=== PATIENT | male | born 1955 | race Two or more races ===

== ENCOUNTER 2021-12-28 12:34 | Inpatient (IN) | payer MEDICARE, OTHER ==
[2021-12-28] VITALS (8 sets, daily range): BP systolic 119–144; BP diastolic 67–87
[~2021-12-28] VITALS: Ht 162.6 cm; Wt 75.1 kg
--- NOTE | 2021-12-28 12:45 | ED.ADGEN ---
Past Medical History Past Medical History: No Pertinent History Past Surgical History: No Surgical History Smoking Status: Current Every Day Smoker Alcohol Use: None Drug Use: Marijuana General Adult EDM: Chief Complaint: GI PROBLEM HPI: HPI: Patient is a 66 year old male brought in via EMS from endoscopy suite. Patient was getting a routine screening colonoscopy with the patient was concerned there could be a bowel perforation. Patient is complaining of no abdominal pain at this time. Review of Systems: Review of Systems: All other systems within normal limits except for as noted in the HPI Current Medications: Current Medications Medications (Trade) Dose Ordered Sig/Tete Start Time Stop Time Status Last Admin Dose Admin Info (CONTRAST GIVEN -- Rx MONITORING) 1 each PRN DAILY PRN 12/28/21 13:30 12/30/21 13:29 Iohexol (Omnipaque 300 Mg/ml) 75 ml 1X ONCE 12/28/21 13:15 12/28/21 13:18 DC 12/28/21 13:23 75 ML Allergies: Allergies: Allergies Coded Allergies Type Severity Reaction Last Updated Verified naproxen Allergy Intermediate 12/28/21 No Physical Exam: PE: Constitutional: Well developed, well nourished, no acute distress, non-toxic appearance. [] HENT: Normocephalic, atraumatic, bilateral external ears normal, nose normal. [] Eyes: PERRLA, conjunctiva normal, no discharge. [] Neck: No rigidity, supple, no stridor. [] Cardiovascular: Regular rate and rhythm, brisk cap refill [] Lungs & Thorax: Non labored symmetric respirations, no tachypnea or respiratory distress [] Abdomen: Soft, nondistended, no tenderness or guarding palpation. Skin: Warm, dry, no erythema, no rash. [] Back: Unremarkable Extremities: No deformities, range of motion grossly intact, no lower extremity edema [] Neurologic: Alert and oriented X 3, no focal deficits noted. [] Psychologic: Affect normal, judgement normal, mood normal. [] Current Patient Data: Labs: Laboratory Tests Test 12/28/21 11:25 White Blood Count 6.5 x10^3/uL (4.0-11.0) Red Blood Count 5.07 x10^6/uL (4.30-5.70) Hemoglobin 13.5 g/dL (13.0-17.5) Hematocrit 41.8 % (39.0-53.0) Mean Corpuscular Volume 83 fL (79-100) Mean Corpuscular Hemoglobin 27 pg (25-35) Mean Corpuscular Hemoglobin Concent 32 g/dL (31-37) Red Cell Distribution Width 14.5 % (11.5-14.5) Platelet Count 167 x10^3/uL (140-400) Neutrophils (%) (Auto) 62 % (31-73) Lymphocytes (%) (Auto) 26 % (24-48) Monocytes (%) (Auto) 6 % (0-9) Eosinophils (%) (Auto) 5 % (0-3) H Basophils (%) (Auto) 1 % (0-3) Neutrophils # (Auto) 4.0 x10^3/uL (1.8-7.7) Lymphocytes # (Auto) 1.7 x10^3/uL (1.0-4.8) Monocytes # (Auto) 0.4 x10^3/uL (0.0-1.1) Eosinophils # (Auto) 0.3 x10^3/uL (0.0-0.7) Basophils # (Auto) 0.1 x10^3/uL (0.0-0.2) Sodium Level 137 mmol/L (136-145) Potassium Level 4.5 mmol/L (3.5-5.1) Chloride Level 107 mmol/L (98-107) Carbon Dioxide Level 25 mmol/L (21-32) Anion Gap 5 (6-14) L Blood Urea Nitrogen 14 mg/dL (8-26) Creatinine 1.1 mg/dL (0.7-1.3) Estimated GFR (Cockcroft-Gault) 66.6 BUN/Creatinine Ratio 13 (6-20) Glucose Level 95 mg/dL (70-99) Calcium Level 8.4 mg/dL (8.5-10.1) L Total Bilirubin 0.6 mg/dL (0.2-1.0) Aspartate Amino Transferase (AST) 20 U/L (15-37) Alanine Aminotransferase (ALT) 29 U/L (16-63) Alkaline Phosphatase 72 U/L (46-116) Total Protein 6.7 g/dL (6.4-8.2) Albumin 3.4 g/dL (3.4-5.0) Albumin/Globulin Ratio 1.0 (1.0-1.7) Laboratory Tests 12/28/21 11:25 Laboratory Tests 12/28/21 11:25 Vital Signs: Vital Signs Date Time Temp Pulse Resp B/P (MAP) Pulse Ox O2 Delivery O2 Flow Rate FiO2 12/28/21 12:35 97.8 60 17 174/85 (114) 98 Room Air 97.8 EKG: EKG: [] Heart Score: C/O Chest Pain: No Risk Factors: Risk Factors: DM, Current or recent (<one month) smoker, HTN, HLP, family history of CAD, obesity. Risk Scores: Score 0 - 3: 2.5% MACE over next 6 weeks - Discharge Home Score 4 - 6: 20.3% MACE over next 6 weeks - Admit for Clinical Observation Score 7 - 10: 72.7% MACE over next 6 weeks - Early Invasive Strategies Radiology/Procedures: Radiology/Procedures: [facility] [address] [place] [address] IMAGING REPORT Signed PATIENT: GILL HUANG ACCOUNT: [id number] : 1955 LOCATION: ER AGE: 66 SEX: M EXAM STATUS: REG ER ORD. PHYSICIAN: TARA BARRY MD REASON: possible bowel perforation PROCEDURE: CT ABD PELV W/ IV CONTRST ONLY Exam: CT abdomen/pelvis with intravenous contrast Indication: Possible bowel perforation during colonoscopy Comparison: None Technique: Helical CT imaging performed of the abdomen and pelvis after the intravenous administration of 75 mL Omnipaque 300 contrast. Sagittal and coronal reformats were obtained. One or more of the following individualized dose reduction techniques were utilized for this examination: 1. Automated exposure control 2. Adjustment of the mA and/or kV according to patient size 3. Use of iterative reconstruction technique. Findings: Lower chest: Mild nonspecific interstitial changes in the lower lobes. The heart is normal in size. Liver: Normal. Gallbladder/Biliary Tree: Normal. Pancreas: Normal. Spleen: Normal. Adrenal Glands: Normal. Kidneys/Ureters/Bladder: The kidneys are normal in size and enhance symmetrically. There are large bilateral peripelvic cysts versus bilateral hydronephrosis related to UPJ obstruction. Ureters and bladder are normal. Reproductive Organs: Prostate gland is normal. Stomach, small bowel, and colon: There is a large amount of free air around the sigmoid colon suspicious for perforation. There are few diverticula in the sigmoid colon. The rest the colon is normal. Appendix is normal. There is no sma ll bowel obstruction. The stomach is normal. Vasculature: Abdominal aorta is normal in caliber. Mild atherosclerosis. Lymph Nodes: No lymphadenopathy. Peritoneum and retroperitoneum: Large amount of free air around the sigmoid colon and tracking upward along the left retroperitoneum. No free fluid or fluid collection. Bones: No acute osseous abnormality. Miscellaneous: None IMPRESSION: 1. Sigmoid colon perforation with large amount of free air around the sigmoid colon and tracking up the left retroperitoneum. 2. Bilateral peripelvic cysts versus bilateral hydronephrosis related to UPJ obstructions. FOR INTERNAL CODING PURPOSES Critical result: Findings discussed with TARA BARRY MD at 12/28/2021 2:06 PM. RESULT CODE: (C) 1. Electronically signed by: Tara Bailey MD (12/28/2021 2:07 PM) [id number] DICTATED and SIGNED BY: TARA BAILEY MD DATE: 12/28/21 4043 [] Course & Med Decision Making: Course & Med Decision Making Consult placed to general surgery, Dr. Nolan will take patient to the OR. Antibiotics started emergency department Dragon Disclaimer: Dragon Disclaimer: This electronic medical record was generated, in whole or in part, using a voice recognition dictation system. Departure Departure Impression: Primary Impression: Perforation of sigmoid colon Disposition: ADMITTED INPATIENT Condition: GUARDED Referrals: BRANDON ROSADO MD (PCP) TARA BARRY MD Dec 28, 2021 12:44
[2021-12-28 13:02] LABS: BASO # 0.1 x10^3/uL (0.0-0.2); BASO % 1 % (0-3); EOS # 0.3 x10^3/uL (0.0-0.7); EOS % 5 % (0-3); HEMATOCRIT 41.8 % (39.0-53.0); HEMOGLOBIN 13.5 g/dL (13.0-17.5); LYMPH # 1.7 x10^3/uL (1.0-4.8); LYMPH % 26 % (24-48); MEAN CORPUSCULAR HEMOGLOBIN 27 pg (25-35); MEAN CORPUSCULAR HGB CONC 32 g/dL (31-37); MEAN CORPUSCULAR VOLUME 83 fL (79-100); MONO # 0.4 x10^3/uL (0.0-1.1); MONO % 6 % (0-9); NEUT % 62 % (31-73); PLATELET COUNT 167 x10^3/uL (140-400); RED BLOOD COUNT 5.07 x10^6/uL (4.30-5.70); RED CELL DISTRIBUTION WIDTH 14.5 % (11.5-14.5); WHITE BLOOD COUNT 6.5 x10^3/uL (4.0-11.0)
[2021-12-28 13:11] LABS: CALCIUM 8.4 mg/dL (8.5-10.1); CREATININE 1.1 mg/dL (0.7-1.3); GFR 66.6; POTASSIUM 4.5 mmol/L (3.5-5.1)
[2021-12-28] MEDS ORDERED: IOHEXOL 300 MG/ML 100ML VIAL. IV ONE (13:15)
[2021-12-28 13:17] LABS: ALBUMIN 3.4 g/dL (3.4-5.0); TOTAL BILIRUBIN 0.6 mg/dL (0.2-1.0); TOTAL PROTEIN 6.7 g/dL (6.4-8.2)
[2021-12-28] MEDS ORDERED: CONTRAST GIVEN. MC PRN (13:30)
--- NOTE | 2021-12-28 14:09 | RAD ---
Exam: CT abdomen/pelvis with intravenous contrast Indication: Possible bowel perforation during colonoscopy Comparison: None Technique: Helical CT imaging performed of the abdomen and pelvis after the intravenous administratio n of 75 mL Omnipaque 300 contrast. Sagittal and coronal reformats were obtained. One or more of the following individualized dose reduction techniques were utilized for this examinat ion: 1. Automated exposure control 2. Adjustment of the mA and/or kV according to patient size 3. Use of iterative reconstruction technique. Findings: Lower chest: Mild nonspecific interstitial changes in the lower lobes. The heart is normal in size. Liver: Normal. Gallbladder/Biliary Tree: Normal. Pancreas: Normal. Spleen: Normal. Adrenal Glands: Normal. Kidneys/Ureters/Bladder: The kidneys are normal in size and enhance symmetrically. There are large bi lateral peripelvic cysts versus bilateral hydronephrosis related to UPJ obstruction. Ureters and blad hang are normal. Reproductive Organs: Prostate gland is normal. Stomach, small bowel, and colon: There is a large amount of free air around the sigmoid colon suspici ous for perforation. There are few diverticula in the sigmoid colon. The rest the colon is normal. Ap pendix is normal. There is no small bowel obstruction. The stomach is normal. Vasculature: Abdominal aorta is normal in caliber. Mild atherosclerosis. Lymph Nodes: No lymphadenopathy. Peritoneum and retroperitoneum: Large amount of free air around the sigmoid colon and tracking upward along the left retroperitoneum. No free fluid or fluid collection. Bones: No acute osseous abnormality. Miscellaneous: None IMPRESSION: 1. Sigmoid colon perforation with large amount of free air around the sigmoid colon and tracking up the left retroperitoneum. 2. Bilateral peripelvic cysts versus bilateral hydronephrosis related to UPJ obstructions. FOR INTERNAL CODING PURPOSES Critical result: Findings discussed with TARA BARRY MD at 12/28/2021 2:06 PM. RESULT CODE: (C) 1. Electronically signed by: Tara Bailey MD (12/28/2021 2:07 PM) [id number]
[2021-12-28] MEDS ORDERED: cefTRIAXone IV Push 1 GM VIAL. IVP ONE (14:30)
[2021-12-28] MEDS ORDERED: PROPOFOL 10 MG/ML (20ML) VIAL. IV ONE (14:39)
[2021-12-28] MEDS ORDERED: ONDANSETRON PF 4 MG/2 ML VIAL. ONE (14:39)
[2021-12-28] MEDS ORDERED: ROCURONIUM 50 MG/5 ML VIAL. ONE (14:40)
[2021-12-28] MEDS ORDERED: DEXAMETHASONE SOD PHOS 20 MG/5 ML VIAL. ONE (14:41)
[2021-12-28] MEDS ORDERED: BUPIVACAINE-EPI 0.25%-1:200000 MPF 30 ML VIAL. ONE (14:41)
[2021-12-28] MEDS ORDERED: fentaNYL PF VIAL 250 MCG/5 ML VIAL ONE (14:42)
[2021-12-28] MEDS ORDERED: LIDOCAINE 2% PF 5 ML VIAL. ONE (14:42)
[2021-12-28] MEDS ORDERED: NEOSTIGMINE METHYLSULFATE 5 MG/5 ML SYRINGE. ONE (14:43)
[2021-12-28] MEDS ORDERED: GLYCOPYRROLATE 1 MG/5 ML VIAL. ONE (14:43)
[2021-12-28] MEDS ORDERED: ONDANSETRON PF 4 MG/2 ML VIAL. IVP PRN (15:00)
[2021-12-28] MEDS ORDERED: ACETAMINOPHEN 325 MG TABLET. PO PRN (15:00)
[2021-12-28] MEDS ORDERED: MORPHINE SULFATE 4 MG/ML INJ. IVP PRN (15:00)
[2021-12-28 15:09] LABS: INFLUENZA A PATIENT NEGATIVE (NEGATIVE); INFLUENZA B PATIENT NEGATIVE (NEGATIVE)
[2021-12-28] MEDS ORDERED: MIDAZOLAM HCL/PF 2 MG/2 ML VIAL. ONE (15:34)
[2021-12-28] MEDS ORDERED: SUCCINYLCHOLINE 200 MG/10 ML VIAL. ONE (15:42)
[2021-12-28] MEDS ORDERED: HYDROmorphone 2 MG/ML INJ. IVP PRN ×2 (15:45→17:30)
[2021-12-28] MEDS ORDERED: fentaNYL PF VIAL 100 MCG/2 ML VIAL IVP PRN ×2 (15:45)
[2021-12-28] MEDS ORDERED: IV RINGERS,LACTATED 1000ML 1,000 ML IV SCH (15:45)
[2021-12-28] MEDS ORDERED: PROCHLORPERAZINE 10 MG/2 ML VIAL. IVP PRN (15:45)
[2021-12-28] MEDS ORDERED: PHENYLEPHRINE in 0.9% NACL PF 1 MG/10 ML SYRINGE. IV ONE (15:59)
[2021-12-28] MEDS ORDERED: ePHEDrine PF IN SALINE 50 MG/10 ML SYRINGE. IV ONE (16:00)
[2021-12-28] MEDS ORDERED: KETAMINE HCL IN NACL, ISO-OSM 50 MG/5 ML SYRINGE ONE (16:16)
--- NOTE | 2021-12-28 17:27 | PDOC4 ---
Operative Note Operative Note Date: December 282021 at 5:23 PM Preoperative diagnosis: Perforated sigmoid colon post colonoscopy Postoperative diagnosis: Same Procedure: Diagnostic laparoscopy with laparoscopic repair of perforated colon Surgeon: Luigi Specimen: None Dictation: Patient is a 66-year-old male who is undergoing a diagnostic colonoscopy earlier today when a known perforation occurred in the mid sigmoid colon he was transferred to the emergency department at [place] CT scan was performed which did show free air within the pelvis surrounding the sigmoid colon consistent with a perforation. Procedure of diagnostic laparoscopy with repair of perforation both laparoscopic and open were explained to the patient detail risk benefits were also discussed including bleeding infection injury to intra-abdominal contents possible necessitating further open operations alternatives to this procedure also discussed with the patient who seemed to understand and gave a verbal and written consent had the procedure performed. Patient was taken to the operating room placed in the supine position general anesthesia was initiated once patient was sleeping intubated his abdomen was prepped and draped usual sterile fashion using ChloraPrep. An area in the left upper quadrant was injected with quarter percent Marcaine with epinephrine incision was made 11 blade scalpel and a 5 mm nonbladed Visiport was placed under direct visualization into the abdomen and a pneumoperitoneum was achieved 5 mm scope was then placed within the abdomen was inspected there was some air within the mesenteric fat in the mid sigmoid a 5 mm port was placed in the right midabdomen a 5 mm port in the right lower abdomen using a grasper this area was investigated and a small hole within the mid sigmoid colon was visualized with exposed mucosa. The 5 mm port in the right midabdomen was replaced with a 12 mm port and a 5 mm port was placed in the midline all under direct visualization. Using an Endo Stitch the perforation was closed with single interrupted 2-0 silk. Once the hole was completely closed a 19 Welsh MICHAEL drain was placed throu gh the right lower quadrant 5 mm port site leg close to the sigmoid colon perforation. There was no soilage or spillage of any cells since the patient has been prepped for his colonoscopy it was quite clean. The pneumoperitoneum was reduced all ports removed the fascial defect at the 12 mm port site was closed with [id number] 0 Vicryl suture and the skin was reapproximated all port sites for subcuticular Monocryl Mastisol Steri-Strips and island dressings were applied. Patient was awakened extubated operating room taken recovery in stable condition all sponge instrument needle counts listed as correct. Estimated blood loss 5 mL THOR SHINE MD Dec 28, 2021 17:27
--- NOTE | 2021-12-28 17:34 | PDOC2 ---
CONSULT Date of Consult Date of Consult DATE: 12/28/21 TIME: 17:31 Reason for Consult Reason for Consult: Perforation status post colonoscopy Referring Physician Referring Physician: Isabelle Identification/Chief Complaint Chief Complaint Abdominal pain Source Source: Chart review, Patient History of Present Illness Reason for Visit: 66-year-old male who underwent a screening colonoscopy was determined to have a perforation at the time of colonoscopy and was transferred to [place] emergency department for evaluation and treatment. A CT scan was performed of his abdomen which showed a large amount of free air mostly centered around the mid sigmoid colon. The patient was otherwise fairly comfortable minimal pain no nausea or vomiting Past Medical History Cardiovascular: No pertinent hx Pulmonary: No pertinent hx GI: No pertinent hx Heme/Onc: No pertinent hx Hepatobiliary: No pertinent hx Psych: No pertinent hx Rheumatologic: No pertinent hx Infectious disease: No pertinent hx ENT: No pertinent hx Renal/: No pertinent hx Endocrine: No pertinent hx Dermatology: No pertinent hx Past Surgical History Past Surgical History: No pertinent history Family History Family History: No Significant Social History No ALCOHOL: none Drugs: None Lives: with Family Current Problem List Problem List Problems Medical Problems: (1) Perforation of sigmoid colon Status: Acute Current Medications Current Medications Current Medications Iohexol (Omnipaque 300 Mg/ml) 75 ml 1X ONCE IV Last administered on 12/28/21at 13:23; Start 12/28/21 at 13:15; Stop 12/28/21 at 13:18; Status DC Info (CONTRAST GIVEN -- Rx MONITORING) 1 each PRN DAILY PRN MC SEE COMMENTS; Start 12/28/21 at 13:30; Stop 12/30/21 at 13:29 Ceftriaxone Sodium (Rocephin) 1 gm 1X ONCE IVP Last administered on 12/28/21at 14:40; Start 12/28/21 at 14:30; Stop 12/28/21 at 14:31; Status DC Metronidazole 100 ml @ 100 mls/hr 1X ONCE IV Last administered on 12/28/21at 14:30; Start 12/28/21 at 14:30; Stop 12/28/21 at 15:29; Status DC Propofol (Diprivan) 200 mg STK-MED ONCE IV ; Start 12/28/21 at 14:39; Stop 12/28/21 at 14:39; Status DC Ondansetron HCl (Zofran) 4 mg STK-MED ONCE .ROUTE ; Start 12/28/21 at 14:39; Stop 12/28/21 at 14:39; Status DC Rocuronium [place] (Zemuron) 50 mg STK-MED ONCE .ROUTE ; Start 12/28/21 at 14:40; Stop 12/28/21 at 14:40; Status DC Dexamethasone Sodium Phosphate (Decadron) 20 mg STK-MED ONCE .ROUTE ; Start 12/28/21 at 14:41; Stop 12/28/21 at 14:41; Status DC Bupivacaine HCl/ Epinephrine Bitart (Sensorcaine-Epi 0.25%-1:479525 Mpf) 30 ml STK-MED ONCE .ROUTE Last administered on 12/28/21at 16:18; Start 12/28/21 at 14:41; Stop 12/28/21 at 14:42; Status DC Lidocaine HCl (Lidocaine Pf 2% Vial) 5 ml STK-MED ONCE .ROUTE ; Start 12/28/21 at 14:42; Stop 12/28/21 at 14:42; Status DC Fentanyl Citrate (Fentanyl 5ml Vial) 250 mcg STK-MED ONCE .ROUTE ; Start 12/28/21 at 14:42; Stop 12/28/21 at 14:43; Status DC Neostigmine [place] (Neostigmine Methylsulfate) 5 mg STK-MED ONCE .ROUTE ; Start 12/28/21 at 14:43; Stop 12/28/21 at 14:44; Status DC Glycopyrrolate (Robinul) 1 mg STK-MED ONCE .ROUTE ; Start 12/28/21 at 14:43; Stop 12/28/21 at 14:44; Status DC Ondansetron HCl (Zofran) 4 mg PRN Q8HRS PRN IVP NAUSEA/VOMITING; Start 12/28/21 at 15:00; Stop 12/29/21 at 14:59 Morphine Sulfate (Morphine Sulfate) 4 mg PRN Q2HR PRN IVP PAIN; Start 12/28/21 at 15:00; Stop 12/29/21 at 14:59 Sodium Chloride 1,000 ml @ 100 mls/hr Q10H IV ; Start 12/28/21 at 15:00; Stop 12/29/21 at 14:59 Acetaminophen (Tylenol) 650 mg PRN Q4HRS PRN PO FEVER > 100.3'F; Start 12/28/21 at 15:00; Stop 12/29/21 at 14:59 Midazolam HCl (Versed) 2 mg STK-MED ONCE .ROUTE ; Start 12/28/21 at 15:34; Stop 12/28/21 at 15:34; Status DC Fentanyl Citrate (Fentanyl 2ml Vial) 25 mcg PRN Q5MIN PRN IVP MILD PAIN 1-3; Start 12/28/21 at 15:45; Stop 12/29/21 at 15:44 Fentanyl Citrate (Fentanyl 2ml Vial) 50 mcg PRN Q5MIN PRN IVP MODERATE PAIN 4- 6; Start 12/28/21 at 15:45; Stop 12/29/21 at 15:44 Morphine Sulfate (Morphine Sulfate) 1 mg PRN Q10MIN PRN IVP SEVERE PAIN 7-10; Start 12/28/21 at 15:45; Stop 12/29/21 at 15:44 Ringer's Solution 1,000 ml @ 30 mls/hr Q24H IV ; Start 12/28/21 at 15:45; Stop 12/29/21 at 03:44 Hydromorphone HCl (Dilaudid) 0.5 mg PRN Q10MIN PRN IVP SEVERE PAIN 7-10, 2nd CHOICE; Start 12/28/21 at 15:45; Stop 12/29/21 at 15:44 Prochlorperazine Edisylate (Compazine) 5 mg PACU PRN PRN IVP NAUSEA, MRX1; Start 12/28/21 at 15:45; Stop 12/29/21 at 15:44 Succinylcholine Chloride (Anectine) 200 mg STK-MED ONCE .ROUTE ; Start 12/28/21 at 15:42; Stop 12/28/21 at 15:43; Status DC Phenylephrine HCl (PHENYLEPHRINE in 0.9% NACL PF) 1 mg STK-MED ONCE IV ; Start 12/28/21 at 15:59; Stop 12/28/21 at 15:59; Status DC Ephedrine Sulfate (ePHEDrine PF IN SALINE SYRINGE) 50 mg STK-MED ONCE IV ; Start 12/28/21 at 16:00; Stop 12/28/21 at 16:00; Status DC Ketamine HCl (Ketamine) 50 mg STK-MED ONCE .ROUTE ; Start 12/28/21 at 16:16; Stop 12/28/21 at 16:16; Status DC Allergies Allergies: Coded Allergies: naproxen (Unverified Allergy, Intermediate, 12/28/21) ROS General: No: Chills, Night Sweats, Fatigue, Malaise, Appetite, Other PSYCHOLOGICAL ROS: No: Anxiety, Behavioral Disorder, Concentration difficultie, Decreased libido, Depression, Disorientation, Hallucinations, Hostility, Irritablity, Memory difficulties, Mood Swings, Obsessive thoughts, Physical abuse, Sexual abuse, Sleep disturbances, Suicidal ideation, Other Eyes: No Blurry vision, No Decreased vision, No Double vision, No Dry eyes, No Excessive tearing, No Eye Pain, No Itchy Eyes, No Loss of vision, No Photophobia, No Scotomata, No Uses contacts, No Uses glasses, No Other HEENT: No: Heacaches, Visual Changes, Hearing change, Nasal congestion, Nasal discharge, Oral lesions, Sinus pain, Sore Throat, Epistaxis, Sneezing, Snoring, Tinnitus, Vertigo, Vocal changes, Other ALLERGY AND IMMUNOLOGY: No: Hives, Insect Bite Sensitivity, Itchy/Watery Eyes, Nasal Congestion, Post Nasal Drip, Seasonal Allergies, Other Hematological and Lymphatic: No: Bleeding Problems, Blood Clots, Blood Transfusions, Brusing, Night Sweats, Pallor, Swollen Lymph Nodes, Other ENDOCRINE: No: Breast Changes, Galactorrhea, Hair Pattern Changes, Hot Flashes, Malaise/lethargy, Mood Swings, Palpitations, Polydipsia/polyuria, Skin Changes, Temperature Intolerance, Unexpected Weight Changes, Other Breast: No New/Changing Breast Lumps, No Nipple changes, No Nipple discharge, No Other Respiratory: No: Cough, Hemoptysis, Orthopnea, Pleuritic Pain, Shortness of breath, SOB with excertion, Sputum Changes, Stridor, Tachypnea, Wheezing, Other Cardiovascular: No Chest Pain, No Palpitations, No Orthopnea, No Paroxysmal Noc. Dyspnea, No Edema, No Lt Headedness, No Other Gastrointestinal: Yes Abdominal Pain Genitourinary: No Dysuria, No Frequency, No Incontinence, No Hematuria, No Retention, No Discharge, No Urgency, No Pain, No Flank Pain, No Other, No , No , No , No , No , No , No Musculoskeletal: No Gait Disturbance, No Joint Pain, No Joint Stiffness, No Joint Swelling, No Muscle Pain, No Muscular Weakness, No Pain In:, No Swelling In:, No Other Neurological: No Behavorial Changes, No Bowel/Bladder ControlChng, No Confusion, No Dizziness, No Gait Disturbance, No Headaches, No Impaired Coord/balance, No Memory Loss, No Numbness/Tingling, No Seizures, No Speech Problems, No Tremors, No Visual Changes, No Weakness, No Other Skin: No Dry Skin, No Eczema, No Hair Changes, No Lumps, No Mole Changes, No Mottling, No Nail Changes, No Pruritus, No Rash, No Skin Lesion Changes, No Other, No Acne Physical Exam General: Alert, Oriented X3, Cooperative, mild distress HEENT: Atraumatic, PERRLA, EOMI Lungs: Clear to auscultation, Normal air movement Heart: Regular rate, No murmurs Abdomen: Normal bowel sounds, Soft, Other (Mildly tender to palpation left lower quadrant) Extremities: No edema Skin: No significant lesion Neuro: Normal speech Psych/Mental Status: Mental status NL Vitals VITALS Vital Signs Date Time Temp Pulse Resp B/P (MAP) Pulse Ox O2 Delivery O2 Flow Rate FiO2 12/28/21 15:33 97.7 73 145/81 97 Room Air 97.7 12/28/21 14:41 15 Labs Labs Laboratory Tests Test 12/28/21 11:25 12/28/21 14:35 White Blood Count 6.5 x10^3/uL (4.0-11.0) Red Blood Count 5.07 x10^6/uL (4.30-5.70) Hemoglobin 13.5 g/dL (13.0-17.5) Hematocrit 41.8 % (39.0-53.0) Mean Corpuscular Volume 83 fL (79-100) Mean Corpuscular Hemoglobin 27 pg (25-35) Mean Corpuscular Hemoglobin Concent 32 g/dL (31-37) Red Cell Distribution Width 14.5 % (11.5-14.5) Platelet Count 167 x10^3/uL (140-400) Neutrophils (%) (Auto) 62 % (31-73) Lymphocytes (%) (Auto) 26 % (24-48) Monocytes (%) (Auto) 6 % (0-9) Eosinophils (%) (Auto) 5 % (0-3) Basophils (%) (Auto) 1 % (0-3) Neutrophils # (Auto) 4.0 x10^3/uL (1.8-7.7) Lymphocytes # (Auto) 1.7 x10^3/uL (1.0-4.8) Monocytes # (Auto) 0.4 x10^3/uL (0.0-1.1) Eosinophils # (Auto) 0.3 x10^3/uL (0.0-0.7) Basophils # (Auto) 0.1 x10^3/uL (0.0-0.2) Sodium Level 137 mmol/L (136-145) Potassium Level 4.5 mmol/L (3.5-5.1) Chloride Level 107 mmol/L (98-107) Carbon Dioxide Level 25 mmol/L (21-32) Anion Gap 5 (6-14) Blood Urea Nitrogen 14 mg/dL (8-26) Creatinine 1.1 mg/dL (0.7-1.3) Estimated GFR (Cockcroft-Gault) 66.6 BUN/Creatinine Ratio 13 (6-20) Glucose Level 95 mg/dL (70-99) Calcium Level 8.4 mg/dL (8.5-10.1) Total Bilirubin 0.6 mg/dL (0.2-1.0) Aspartate Amino Transf (AST/SGOT) 20 U/L (15-37) Alanine Aminotransferase (ALT/SGPT) 29 U/L (16-63) Alkaline Phosphatase 72 U/L (46-116) Total Protein 6.7 g/dL (6.4-8.2) Albumin 3.4 g/dL (3.4-5.0) Albumin/Globulin Ratio 1.0 (1.0-1.7) Influenza Type A Antigen Negative (NEGATIVE) Influenza Type B Antigen Negative (NEGATIVE) SARS-CoV-2 Antigen (Rapid) Negative (NEGATIVE) Laboratory Tests Test 12/28/21 11:25 12/28/21 14:35 White Blood Count 6.5 x10^3/uL (4.0-11.0) Red Blood Count 5.07 x10^6/uL (4.30-5.70) Hemoglobin 13.5 g/dL (13.0-17.5) Hematocrit 41.8 % (39.0-53.0) Mean Corpuscular Volume 83 fL (79-100) Mean Corpuscular Hemoglobin 27 pg (25-35) Mean Corpuscular Hemoglobin Concent 32 g/dL (31-37) Red Cell Distribution Width 14.5 % (11.5-14.5) Platelet Count 167 x10^3/uL (140-400) Neutrophils (%) (Auto) 62 % (31-73) Lymphocytes (%) (Auto) 26 % (24-48) Monocytes (%) (Auto) 6 % (0-9) Eosinophils (%) (Auto) 5 % (0-3) Basophils (%) (Auto) 1 % (0-3) Neutrophils # (Auto) 4.0 x10^3/uL (1.8-7.7) Lymphocytes # (Auto) 1.7 x10^3/uL (1.0-4.8) Monocytes # (Auto) 0.4 x10^3/uL (0.0-1.1) Eosinophils # (Auto) 0.3 x10^3/uL (0.0-0.7) Basophils # (Auto) 0.1 x10^3/uL (0.0-0.2) Sodium Level 137 mmol/L (136-145) Potassium Level 4.5 mmol/L (3.5-5.1) Chloride Level 107 mmol/L (98-107) Carbon Dioxide Level 25 mmol/L (21-32) Anion Gap 5 (6-14) Blood Urea Nitrogen 14 mg/dL (8-26) Creatinine 1.1 mg/dL (0.7-1.3) Estimated GFR (Cockcroft-Gault) 66.6 BUN/Creatinine Ratio 13 (6-20) Glucose Level 95 mg/dL (70-99) Calcium Level 8.4 mg/dL (8.5-10.1) Total Bilirubin 0.6 mg/dL (0.2-1.0) Aspartate Amino Transf (AST/SGOT) 20 U/L (15-37) Alanine Aminotransferase (ALT/SGPT) 29 U/L (16-63) Alkaline Phosphatase 72 U/L (46-116) Total Protein 6.7 g/dL (6.4-8.2) Albumin 3.4 g/dL (3.4-5.0) Albumin/Globulin Ratio 1.0 (1.0-1.7) Influenza Type A Antigen Negative (NEGATIVE) Influenza Type B Antigen Negative (NEGATIVE) SARS-CoV-2 Antigen (Rapid) Negative (NEGATIVE) Assessment/Plan Assessment/Plan Perforation of the colon post colonoscopy plan for repair THOR SHINE MD Dec 28, 2021 17:34
[2021-12-28] MEDS: MORPHINE SULFATE 2 MG/ML INJ. IVP PRN ×2 (17:54→18:08)
[2021-12-28] MEDS: KETOROLAC 15 MG/ML VIAL. IVP SCH ×2 (18:00→23:21)
[2021-12-28] MEDS: cefTRIAXone IV Push 1 GM VIAL. IVP SCH (18:00)
[2021-12-28] MEDS: IV NORMAL SALINE 1000ML BAG 1,000 ML IV SCH (18:07)
[2021-12-28] MEDS ORDERED: KETOROLAC 30 MG/ML VIAL. IVP ONE (18:30)
--- NOTE | 2021-12-28 18:58 | HP ---
DATE OF SERVICE: 12/28/2021 ADMIT DATE: 12/28/2021 CHIEF COMPLAINT: Perforated bowel. 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 Basically, he was getting a routine colonoscopy done today at [facility] and apparently, there was a concern for a perforation. He was sent to the ER for evaluation. We have consulted Dr. Meyers. Dr. Meyers has taken the patient to surgery. Shortly, I did speak with Dr. Meyers and the GI team. PAST MEDICAL HISTORY: Marijuana use. ALLERGIES: NAPROXEN. FAMILY HISTORY: Diabetes. SOCIAL HISTORY: Does not drink or smoke. He smokes marijuana. He repairs boots. His daughter is a county demonstrator. She is here with him, seems to be good support for him. MEDICATIONS: Reviewed, please refer to the MRAD. REVIEW OF SYSTEMS: GENERAL: No history of weight change, weakness or fevers. SKIN: No bruising, hair changes or rashes. EYES: No blurred, double or loss of vision. NOSE AND THROAT: No history of nosebleeds, hoarseness or sore throat. HEART: No history of palpitations, chest pain or shortness of breath on exertion. LUNGS: Denies cough, hemoptysis, wheezing or shortness of breath. GASTROINTESTINAL: He does complain of a little bit of abdominal pain. GENITOURINARY: No history of frequency, urgency, hesitancy or nocturia. NEUROLOGIC: Denies history of numbness, tingling, tremor or weakness. PSYCHIATRIC: No history of panic, anxiety or depression. ENDOCRINE: No history of heat or cold intolerance, polyuria or polydipsia. EXTREMITIES: Denies muscle weakness, joint pain, pain on walking or stiffness. PHYSICAL EXAMINATION: VITALS: Within normal limits and are stable. GENERAL: No apparent distress. Alert and oriented. HEENT: Normal cephalic atraumatic, external auditory canals are patent EYES: Extraocular muscles are intact, pupils are equally round and reactive to light and accommodation MUSCULOSKELETAL: Well developed, well nourished, good range of motion ENDOCRINE: No thyromegaly was palpated LYMPHATICS: No cervical chain or axillary nodes were noted HEMATOPOIETIC: No bruising NECK: Supple, no JVD, no thyromegaly was noted. LUNGS: Clear to auscultation in all lung bennett without rhonchi or wheezing. HEART: RRR, S1, S2 present. Peripheral pulses intact, no obvious murmurs were noted. ABDOMEN: He has decreased bowel sounds with some slight tenderness. EXTREMITIES: Without any cyanosis, clubbing, or edema. Pedal pulses intact, Homans sign is negative. NEUROLOGIC: Normal speech, normal tone. A and O x3, moves all extremities, no obvious focal deficits. PSYCHIATRIC: Normal affect, normal mood. Stable. SKIN: No ulcerations or rashes, good skin turgor, no jaundice. VASCULAR: Good capillary refill, neurovascular bundle appears to be intact. LABORATORY DATA: White count 6, hemoglobin 13, platelets 167. Electrolytes are normal. COVID testing negative. DIAGNOSTIC DATA: CT of the abdomen shows a sigmoid colon perforation with a large amount of free air surrounding the sigmoid colon and tracking up the left retroperitoneum, bilateral peripelvic cyst versus bilateral hydronephrosis related to UPJ obstructions. ASSESSMENT AND PLAN: Perforated bowel. The patient has been admitted. We are consulting Dr. Meyers. The patient is going to surgery right now. Postoperatively, he is going to need wound care and perhaps IV antibiotics. We will trend his labs. Regarding the abnormal imaging with the possibility of hydronephrosis, we will consult Urology. Home medications. IV fluids. Deep vein thrombosis prophylaxis. Full code. MARY/RUSTAM/DONELL DR: MARY/yolanda TID: [id number]
[2021-12-29 03:00] VITALS: BP 105/59
[2021-12-29] MEDS: IV NORMAL SALINE 1000ML BAG 1,000 ML IV SCH ×2 (04:37→11:00)
[2021-12-29] MEDS: KETOROLAC 30 MG/ML VIAL. IVP SCH ×4 (06:00→23:41)
[2021-12-29 07:00] VITALS: BP 100/51
[2021-12-29 07:24] LABS: BASO % 0 % (0-3); EOS % 0 % (0-3); HEMATOCRIT 40.9 % (39.0-53.0); HEMOGLOBIN 12.8 g/dL (13.0-17.5); LYMPH # 0.7 x10^3/uL (1.0-4.8); LYMPH % 8 % (24-48); MEAN CORPUSCULAR HEMOGLOBIN 26 pg (25-35); MEAN CORPUSCULAR HGB CONC 31 g/dL (31-37); MEAN CORPUSCULAR VOLUME 83 fL (79-100); MONO # 0.3 x10^3/uL (0.0-1.1); MONO % 4 % (0-9); NEUT # 7.7 x10^3/uL (1.8-7.7); NEUT % 88 % (31-73); PLATELET COUNT 159 x10^3/uL (140-400); RED BLOOD COUNT 4.93 x10^6/uL (4.30-5.70); RED CELL DISTRIBUTION WIDTH 14.4 % (11.5-14.5); WHITE BLOOD COUNT 8.8 x10^3/uL (4.0-11.0)
[2021-12-29 07:53] LABS: ALBUMIN 2.9 g/dL (3.4-5.0); CALCIUM 7.7 mg/dL (8.5-10.1); CREATININE 1.1 mg/dL (0.7-1.3); GFR 66.6; TOTAL BILIRUBIN 0.5 mg/dL (0.2-1.0); TOTAL PROTEIN 5.9 g/dL (6.4-8.2)
--- NOTE | 2021-12-29 09:07 | PDOC ---
SURGICAL PROGRESS NOTE DATE: 12/29/21 TIME: 09:06 Subjective sore, but improved no nausea no flatus yet Vital Signs Vital Signs Date Time Temp Pulse Resp B/P (MAP) Pulse Ox O2 Delivery O2 Flow Rate FiO2 12/29/21 08:00 Mask 10.0 12/29/21 07:00 97.6 59 20 100/51 (67) 95 97.6 I&O Intake and Output 12/29/21 07:00 Intake Total 1100 ml Output Total 345 ml Balance 755 ml Intake IV Total 1100 ml Output Urine Total 325 ml Estimated Blood Loss 20 ml # Voids 1 General: Alert, Oriented X3, Cooperative Abdomen: Soft, Other (ari serosang) Labs Laboratory Tests Test 12/28/21 11:25 12/28/21 14:35 12/29/21 06:25 White Blood Count 6.5 x10^3/uL (4.0-11.0) 8.8 x10^3/uL (4.0-11.0) Red Blood Count 5.07 x10^6/uL (4.30-5.70) 4.93 x10^6/uL (4.30-5.70) Hemoglobin 13.5 g/dL (13.0-17.5) 12.8 g/dL (13.0-17.5) Hematocrit 41.8 % (39.0-53.0) 40.9 % (39.0-53.0) Mean Corpuscular Volume 83 fL (79-100) 83 fL (79-100) Mean Corpuscular Hemoglobin 27 pg (25-35) 26 pg (25-35) Mean Corpuscular Hemoglobin Concent 32 g/dL (31-37) 31 g/dL (31-37) Red Cell Distribution Width 14.5 % (11.5-14.5) 14.4 % (11.5-14.5) Platelet Count 167 x10^3/uL (140-400) 159 x10^3/uL (140-400) Neutrophils (%) (Auto) 62 % (31-73) 88 % (31-73) Lymphocytes (%) (Auto) 26 % (24-48) 8 % (24-48) Monocytes (%) (Auto) 6 % (0-9) 4 % (0-9) Eosinophils (%) (Auto) 5 % (0-3) 0 % (0-3) Basophils (%) (Auto) 1 % (0-3) 0 % (0-3) Neutrophils # (Auto) 4.0 x10^3/uL (1.8-7.7) 7.7 x10^3/uL (1.8-7.7) Lymphocytes # (Auto) 1.7 x10^3/uL (1.0-4.8) 0.7 x10^3/uL (1.0-4.8) Monocytes # (Auto) 0.4 x10^3/uL (0.0-1.1) 0.3 x10^3/uL (0.0-1.1) Eosinophils # (Auto) 0.3 x10^3/uL (0.0-0.7) 0.0 x10^3/uL (0.0-0.7) Basophils # (Auto) 0.1 x10^3/uL (0.0-0.2) 0.0 x10^3/uL (0.0-0.2) Sodium Level 137 mmol/L (136-145) 141 mmol/L (136-145) Potassium Level 4.5 mmol/L (3.5-5.1) 4.0 mmol/L (3.5-5.1) Chloride Level 107 mmol/L (98-107) 108 mmol/L (98-107) Carbon Dioxide Level 25 mmol/L (21-32) 23 mmol/L (21-32) Anion Gap 5 (6-14) 10 (6-14) Blood Urea Nitrogen 14 mg/dL (8-26) 18 mg/dL (8-26) Creatinine 1.1 mg/dL (0.7-1.3) 1.1 mg/dL (0.7-1.3) Estimated GFR (Cockcroft-Gault) 66.6 66.6 BUN/Creatinine Ratio 13 (6-20) 16 (6-20) Glucose Level 95 mg/dL (70-99) 114 mg/dL (70-99) Calcium Level 8.4 mg/dL (8.5-10.1) 7.7 mg/dL (8.5-10.1) Total Bilirubin 0.6 mg/dL (0.2-1.0) 0.5 mg/dL (0.2-1.0) Aspartate Amino Transf (AST/SGOT) 20 U/L (15-37) 17 U/L (15-37) Alanine Aminotransferase (ALT/SGPT) 29 U/L (16-63) 29 U/L (16-63) Alkaline Phosphatase 72 U/L (46-116) 63 U/L (46-116) Total Protein 6.7 g/dL (6.4-8.2) 5.9 g/dL (6.4-8.2) Albumin 3.4 g/dL (3.4-5.0) 2.9 g/dL (3.4-5.0) Albumin/Globulin Ratio 1.0 (1.0-1.7) 1.0 (1.0-1.7) Influenza Type A Antigen Negative (NEGATIVE) Influenza Type B Antigen Negative (NEGATIVE) SARS-CoV-2 Antigen (Rapid) Negative (NEGATIVE) Laboratory Tests Test 12/28/21 11:25 12/28/21 14:35 12/29/21 06:25 White Blood Count 6.5 x10^3/uL (4.0-11.0) 8.8 x10^3/uL (4.0-11.0) Red Blood Count 5.07 x10^6/uL (4.30-5.70) 4.93 x10^6/uL (4.30-5.70) Hemoglobin 13.5 g/dL (13.0-17.5) 12.8 g/dL (13.0-17.5) Hematocrit 41.8 % (39.0-53.0) 40.9 % (39.0-53.0) Mean Corpuscular Volume 83 fL (79-100) 83 fL (79-100) Mean Corpuscular Hemoglobin 27 pg (25-35) 26 pg (25-35) Mean Corpuscular Hemoglobin Concent 32 g/dL (31-37) 31 g/dL (31-37) Red Cell Distribution Width 14.5 % (11.5-14.5) 14.4 % (11.5-14.5) Platelet Count 167 x10^3/uL (140-400) 159 x10^3/uL (140-400) Neutrophils (%) (Auto) 62 % (31-73) 88 % (31-73) Lymphocytes (%) (Auto) 26 % (24-48) 8 % (24-48) Monocytes (%) (Auto) 6 % (0-9) 4 % (0-9) Eosinophils (%) (Auto) 5 % (0-3) 0 % (0-3) Basophils (%) (Auto) 1 % (0-3) 0 % (0-3) Neutrophils # (Auto) 4.0 x10^3/uL (1.8-7.7) 7.7 x10^3/uL (1.8-7.7) Lymphocytes # (Auto) 1.7 x10^3/uL (1.0-4.8) 0.7 x10^3/uL (1.0-4.8) Monocytes # (Auto) 0.4 x10^3/uL (0.0-1.1) 0.3 x10^3/uL (0.0-1.1) Eosinophils # (Auto) 0.3 x10^3/uL (0.0-0.7) 0.0 x10^3/uL (0.0-0.7) Basophils # (Auto) 0.1 x10^3/uL (0.0-0.2) 0.0 x10^3/uL (0.0-0.2) Sodium Level 137 mmol/L (136-145) 141 mmol/L (136-145) Potassium Level 4.5 mmol/L (3.5-5.1) 4.0 mmol/L (3.5-5.1) Chloride Level 107 mmol/L (98-107) 108 mmol/L (98-107) Carbon Dioxide Level 25 mmol/L (21-32) 23 mmol/L (21-32) Anion Gap 5 (6-14) 10 (6-14) Blood Urea Nitrogen 14 mg/dL (8-26) 18 mg/dL (8-26) Creatinine 1.1 mg/dL (0.7-1.3) 1.1 mg/dL (0.7-1.3) Estimated GFR (Cockcroft-Gault) 66.6 66.6 BUN/Creatinine Ratio 13 (6-20) 16 (6-20) Glucose Level 95 mg/dL (70-99) 114 mg/dL (70-99) Calcium Level 8.4 mg/dL (8.5-10.1) 7.7 mg/dL (8.5-10.1) Total Bilirubin 0.6 mg/dL (0.2-1.0) 0.5 mg/dL (0.2-1.0) Aspartate Amino Transf (AST/SGOT) 20 U/L (15-37) 17 U/L (15-37) Alanine Aminotransferase (ALT/SGPT) 29 U/L (16-63) 29 U/L (16-63) Alkaline Phosphatase 72 U/L (46-116) 63 U/L (46-116) Total Protein 6.7 g/dL (6.4-8.2) 5.9 g/dL (6.4-8.2) Albumin 3.4 g/dL (3.4-5.0) 2.9 g/dL (3.4-5.0) Albumin/Globulin Ratio 1.0 (1.0-1.7) 1.0 (1.0-1.7) Influenza Type A Antigen Negative (NEGATIVE) Influenza Type B Antigen Negative (NEGATIVE) SARS-CoV-2 Antigen (Rapid) Negative (NEGATIVE) Problem List Problems Medical Problems: (1) Perforation of sigmoid colon Status: Acute Assessment/Plan laparoscopic repair of perf bowel rest, await bowel function drain Justicifation of Admission Dx: Justifications for Admission: Justification of Admission Dx: Yes Comments: colonic perforation JUDY HODGE APRN Dec 29, 2021 09:07
--- NOTE | 2021-12-29 09:51 | PDOC ---
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 Basically, he was getting a routine colonoscopy done today at [facility] and apparently, there was a concern for a perforation. He was sent to the ER for evaluation. We have consulted Dr. Meyers. Dr. Meyers has taken the patient to surgery. 12/29/2021 No acute events overnight. Patient seen examined bedside. Patient having appropriate abdominal pain from surgical trocar incisions. Tolerable and well controlled with IV morphine. Passing flatus. Will defer diet to surgery. Patient's chart, labs, images were reviewed and discussed with RN Vitals/I&O Vitals/I&O: Vital Signs Date Time Temp Pulse Resp B/P (MAP) Pulse Ox O2 Delivery O2 Flow Rate FiO2 12/29/21 08:00 Mask 10.0 12/29/21 07:00 97.6 59 20 100/51 (67) 95 97.6 I & O 12/28/21 12/28/21 12/29/21 15:00 23:00 07:00 Intake Total 1100 ml Output Total 145 ml 200 ml Balance 955 ml -200 ml Physical Exam General: Alert, Oriented X3, Cooperative Heart: Regular rate, No murmurs Abdomen: Soft, Other (ari serosang) Extremities: No edema Skin: No significant lesion Labs Labs: Laboratory Tests Test 12/28/21 11:25 12/28/21 14:35 12/29/21 06:25 White Blood Count 6.5 x10^3/uL (4.0-11.0) 8.8 x10^3/uL (4.0-11.0) Red Blood Count 5.07 x10^6/uL (4.30-5.70) 4.93 x10^6/uL (4.30-5.70) Hemoglobin 13.5 g/dL (13.0-17.5) 12.8 g/dL (13.0-17.5) Hematocrit 41.8 % (39.0-53.0) 40.9 % (39.0-53.0) Mean Corpuscular Volume 83 fL (79-100) 83 fL (79-100) Mean Corpuscular Hemoglobin 27 pg (25-35) 26 pg (25-35) Mean Corpuscular Hemoglobin Concent 32 g/dL (31-37) 31 g/dL (31-37) Red Cell Distribution Width 14.5 % (11.5-14.5) 14.4 % (11.5-14.5) Platelet Count 167 x10^3/uL (140-400) 159 x10^3/uL (140-400) Neutrophils (%) (Auto) 62 % (31-73) 88 % (31-73) Lymphocytes (%) (Auto) 26 % (24-48) 8 % (24-48) Monocytes (%) (Auto) 6 % (0-9) 4 % (0-9) Eosinophils (%) (Auto) 5 % (0-3) 0 % (0-3) Basophils (%) (Auto) 1 % (0-3) 0 % (0-3) Neutrophils # (Auto) 4.0 x10^3/uL (1.8-7.7) 7.7 x10^3/uL (1.8-7.7) Lymphocytes # (Auto) 1.7 x10^3/uL (1.0-4.8) 0.7 x10^3/uL (1.0-4.8) Monocytes # (Auto) 0.4 x10^3/uL (0.0-1.1) 0.3 x10^3/uL (0.0-1.1) Eosinophils # (Auto) 0.3 x10^3/uL (0.0-0.7) 0.0 x10^3/uL (0.0-0.7) Basophils # (Auto) 0.1 x10^3/uL (0.0-0.2) 0.0 x10^3/uL (0.0-0.2) Sodium Level 137 mmol/L (136-145) 141 mmol/L (136-145) Potassium Level 4.5 mmol/L (3.5-5.1) 4.0 mmol/L (3.5-5.1) Chloride Level 107 mmol/L (98-107) 108 mmol/L (98-107) Carbon Dioxide Level 25 mmol/L (21-32) 23 mmol/L (21-32) Anion Gap 5 (6-14) 10 (6-14) Blood Urea Nitrogen 14 mg/dL (8-26) 18 mg/dL (8-26) Creatinine 1.1 mg/dL (0.7-1.3) 1.1 mg/dL (0.7-1.3) Estimated GFR (Cockcroft-Gault) 66.6 66.6 BUN/Creatinine Ratio 13 (6-20) 16 (6-20) Glucose Level 95 mg/dL (70-99) 114 mg/dL (70-99) Calcium Level 8.4 mg/dL (8.5-10.1) 7.7 mg/dL (8.5-10.1) Total Bilirubin 0.6 mg/dL (0.2-1.0) 0.5 mg/dL (0.2-1.0) Aspartate Amino Transf (AST/SGOT) 20 U/L (15-37) 17 U/L (15-37) Alanine Aminotransferase (ALT/SGPT) 29 U/L (16-63) 29 U/L (16-63) Alkaline Phosphatase 72 U/L (46-116) 63 U/L (46-116) Total Protein 6.7 g/dL (6.4-8.2) 5.9 g/dL (6.4-8.2) Albumin 3.4 g/dL (3.4-5.0) 2.9 g/dL (3.4-5.0) Albumin/Globulin Ratio 1.0 (1.0-1.7) 1.0 (1.0-1.7) Influenza Type A Antigen Negative (NEGATIVE) Influenza Type B Antigen Negative (NEGATIVE) SARS-CoV-2 Antigen (Rapid) Negative (NEGATIVE) Assessment and Plan Assessmemt and Plan Problems Medical Problems: (1) Perforation of sigmoid colon Status: Acute Comment Review of Relevant I have reviewed the following items adi (where applicable) has been applied. Medications: Current Medications Medications (Trade) Dose Ordered Sig/Tete Route PRN Reason Start Time Stop Time Status Last Admin Dose Admin Iohexol (Omnipaque 300 Mg/ml) 75 ml 1X ONCE IV 12/28/21 13:15 12/28/21 13:18 DC 12/28/21 13:23 Ceftriaxone Sodium (Rocephin) 1 gm 1X ONCE IVP 12/28/21 14:30 12/28/21 14:31 DC 12/28/21 14:40 Metronidazole 100 ml @ 100 mls/hr 1X ONCE IV 12/28/21 14:30 12/28/21 15:29 DC 12/28/21 14:30 Bupivacaine HCl/ Epinephrine Bitart (Sensorcaine-Epi 0.25%-1:[id number] Mpf) 30 ml STK-MED ONCE .ROUTE 12/28/21 14:41 12/28/21 14:42 DC 12/28/21 16:18 Morphine Sulfate (Morphine Sulfate) 4 mg PRN Q2HR PRN IVP PAIN 12/28/21 15:00 12/29/21 14:59 12/29/21 09:16 Sodium Chloride 1,000 ml @ 100 mls/hr Q10H IV 12/28/21 15:00 12/29/21 14:59 12/29/21 04:37 Morphine Sulfate (Morphine Sulfate) 1 mg PRN Q10MIN PRN IVP SEVERE PAIN 7-10 12/28/21 15:45 12/28/21 23:20 DC 12/28/21 18:08 Ringer's Solution 1,000 ml @ 30 mls/hr Q24H IV 12/28/21 15:45 12/29/21 03:44 DC 12/28/21 15:45 Ketorolac Tromethamine (Toradol 15mg Vial) 15 mg Q6HRS IVP 12/28/21 18:00 12/29/21 04:50 DC 12/28/21 23:21 Ceftriaxone Sodium (Rocephin) 1 gm Q24H IVP 12/28/21 18:00 12/28/21 18:00 Metronidazole 100 ml @ 100 mls/hr Q8HRS IV 12/28/21 22:00 12/29/21 06:10 Ketorolac Tromethamine (Toradol 30mg Vial) 30 mg 1X ONCE IVP 12/28/21 18:30 12/28/21 18:31 DC 12/28/21 18:08 Ketorolac Tromethamine (Toradol 30mg Vial) 15 mg Q6HRS IVP 12/29/21 06:00 12/30/21 17:59 12/29/21 06:00 Justifications for Admission Other Justification YESY NICKERSON MD Dec 29, 2021 09:51
[2021-12-29 11:00] VITALS: BP 120/61
--- NOTE | 2021-12-29 11:17 | NUR ---
SW following. Discussed with RN, pt from home, room air, NPO, rapid COVID-19 negative. Pt had surgery 12/28/21. ID, Surgery and Urology following. RN advised no SW needs at this time. SW will continue to follow.
--- NOTE | 2021-12-29 13:04 | CONS ---
DATE OF CONSULTATION: 12/29/2021 REQUESTING PHYSICIAN: Dr. Restrepo. REASON FOR CONSULTATION: Colon perforation. HISTORY OF PRESENT ILLNESS: This is a 66-year-old gentleman who had a routine colonoscopy and subsequent perforation. The patient was sent to the ER. The patient underwent a repair of the colon perforation. The patient is doing great. Denies any fever, chills, nausea or vomiting. Denies any abdominal pain. He is on Rocephin and Flagyl. PAST MEDICAL HISTORY: Essentially unremarkable. SOCIAL HISTORY: Positive for marijuana use for some chronic back problem. CURRENT MEDICATIONS: The patient is on Rocephin and Flagyl. ALLERGIES: LISTED ALLERGIC TO NAPROXEN. REVIEW OF SYSTEMS: As in HPI. All other systems reviewed are negative. PHYSICAL EXAMINATION: GENERAL: Alert, oriented gentleman, not in distress. VITAL SIGNS: Stable, afebrile. HEENT: NAD. NECK: Supple, no JVP, no lymphadenopathy. LUNGS: Clear. HEART: S1, S2, regular. ABDOMEN: Soft, nontender, not distended. EXTREMITIES: No edema or cyanosis. SKIN: Unremarkable. NEUROLOGIC: The patient is alert, awake, and appropriate. No focal neurologic deficit. LABORATORY DATA: White count is normal. BUN and creatinine is normal. His CT before surgery noted. IMPRESSION: 1. Colon perforation post-colonoscopy, status post repair. 2. History of marijuana use. RECOMMENDATIONS: Diet as per surgery and once oral more allowed, antibiotic can be changed to p.o. Augmentin for possible discharge. Thank you very much, Dr. Restrepo, for giving me opportunity to participate in this patient's care. AUGUSTUS ROSENBERG: Talisha TID: [id number]
--- NOTE | 2021-12-29 14:25 | PDOC2 ---
UROLOGY CONSULT DOS: DATE: 12/29/21 TIME: 14:18 Reason for Consult: renal cysts or hydronephrosis Problems: (1) Urticaria (2) Perforation of sigmoid colon HISTORY OF KIDNEY PROBLEMS: No HISTORY OF INCONTINENCE: No HISTORY FREQUENCY/NOCTURIA: No HISTORY OF CANCER: No Chief Complaint renal cysts or hydronephrosis 66M with bowel perforation during colonoscopy. CT scan of A/P performed revealed incidental finding of renal cyst or hydronephrosis. No urinary complaints ROS ROS: AB: pain resolved RESPIRATORY: Shortness of breath denies. Cough denies. UROLOGY: Denies blood in urine. Denies difficulty urinating Current Medications Current Medications Iohexol (Omnipaque 300 Mg/ml) 75 ml 1X ONCE IV Last administered on 12/28/21at 13:23; Start 12/28/21 at 13:15; Stop 12/28/21 at 13:18; Status DC Info (CONTRAST GIVEN -- Rx MONITORING) 1 each PRN DAILY PRN MC SEE COMMENTS; Start 12/28/21 at 13:30; Stop 12/30/21 at 13:29 Ceftriaxone Sodium (Rocephin) 1 gm 1X ONCE IVP Last administered on 12/28/21at 14:40; Start 12/28/21 at 14:30; Stop 12/28/21 at 14:31; Status DC Metronidazole 100 ml @ 100 mls/hr 1X ONCE IV Last administered on 12/28/21at 14:30; Start 12/28/21 at 14:30; Stop 12/28/21 at 15:29; Status DC Propofol (Diprivan) 200 mg STK-MED ONCE IV ; Start 12/28/21 at 14:39; Stop 12/28/21 at 14:39; Status DC Ondansetron HCl (Zofran) 4 mg STK-MED ONCE .ROUTE ; Start 12/28/21 at 14:39; Stop 12/28/21 at 14:39; Status DC Rocuronium Bison (Zemuron) 50 mg STK-MED ONCE .ROUTE ; Start 12/28/21 at 14:40; Stop 12/28/21 at 14:40; Status DC Dexamethasone Sodium Phosphate (Decadron) 20 mg STK-MED ONCE .ROUTE ; Start 12/28/21 at 14:41; Stop 12/28/21 at 14:41; Status DC Bupivacaine HCl/ Epinephrine Bitart (Sensorcaine-Epi 0.25%-1:610622 Mpf) 30 ml STK-MED ONCE .ROUTE Last administered on 12/28/21at 16:18; Start 12/28/21 at 14:41; Stop 12/28/21 at 14:42; Status DC Lidocaine HCl (Lidocaine Pf 2% Vial) 5 ml STK-MED ONCE .ROUTE ; Start 12/28/21 at 14:42; Stop 12/28/21 at 14:42; Status DC Fentanyl Citrate (Fentanyl 5ml Vial) 250 mcg STK-MED ONCE .ROUTE ; Start 12/28/21 at 14:42; Stop 12/28/21 at 14:43; Status DC Neostigmine Bison (Neostigmine Methylsulfate) 5 mg STK-MED ONCE .ROUTE ; Start 12/28/21 at 14:43; Stop 12/28/21 at 14:44; Status DC Glycopyrrolate (Robinul) 1 mg STK-MED ONCE .ROUTE ; Start 12/28/21 at 14:43; Stop 12/28/21 at 14:44; Status DC Ondansetron HCl (Zofran) 4 mg PRN Q8HRS PRN IVP NAUSEA/VOMITING; Start 12/28/21 at 15:00; Stop 12/29/21 at 14:59 Morphine Sulfate (Morphine Sulfate) 4 mg PRN Q2HR PRN IVP PAIN Last administered on 12/29/21at 09:16; Start 12/28/21 at 15:00; Stop 12/29/21 at 14:59 Sodium Chloride 1,000 ml @ 100 mls/hr Q10H IV Last administered on 12/29/21at 11:00; Start 12/28/21 at 15:00; Stop 12/29/21 at 14:59 Acetaminophen (Tylenol) 650 mg PRN Q4HRS PRN PO FEVER > 100.3'F; Start 12/28/21 at 15:00; Stop 12/29/21 at 14:59 Midazolam HCl (Versed) 2 mg STK-MED ONCE .ROUTE ; Start 12/28/21 at 15:34; Stop 12/28/21 at 15:34; Status DC Fentanyl Citrate (Fentanyl 2ml Vial) 25 mcg PRN Q5MIN PRN IVP MILD PAIN 1-3; Start 12/28/21 at 15:45; Stop 12/28/21 at 23:20; Status DC Fentanyl Citrate (Fentanyl 2ml Vial) 50 mcg PRN Q5MIN PRN IVP MODERATE PAIN 4- 6; Start 12/28/21 at 15:45; Stop 12/28/21 at 23:20; Status DC Morphine Sulfate (Morphine Sulfate) 1 mg PRN Q10MIN PRN IVP SEVERE PAIN 7-10 Last administered on 12/28/21at 18:08; Start 12/28/21 at 15:45; Stop 12/28/21 at 23:20; Status DC Ringer's Solution 1,000 ml @ 30 mls/hr Q24H IV Last administered on 12/28/21at 15:45; Start 12/28/21 at 15:45; Stop 12/29/21 at 03:44; Status DC Hydromorphone HCl (Dilaudid) 0.5 mg PRN Q10MIN PRN IVP SEVERE PAIN 7-10, 2nd CHOICE; Start 12/28/21 at 15:45; Stop 12/28/21 at 23:20; Status DC Prochlorperazine Edisylate (Compazine) 5 mg PACU PRN PRN IVP NAUSEA, MRX1; Start 12/28/21 at 15:45; Stop 12/28/21 at 23:21; Status DC Succinylcholine Chloride (Anectine) 200 mg STK-MED ONCE .ROUTE ; Start 12/28/21 at 15:42; Stop 12/28/21 at 15:43; Status DC Phenylephrine HCl (PHENYLEPHRINE in 0.9% NACL PF) 1 mg STK-MED ONCE IV ; Start 12/28/21 at 15:59; Stop 12/28/21 at 15:59; Status DC Ephedrine Sulfate (ePHEDrine PF IN SALINE SYRINGE) 50 mg STK-MED ONCE IV ; Start 12/28/21 at 16:00; Stop 12/28/21 at 16:00; Status DC Ketamine HCl (Ketamine) 50 mg STK-MED ONCE .ROUTE ; Start 12/28/21 at 16:16; Stop 12/28/21 at 16:16; Status DC Ketorolac Tromethamine (Toradol 15mg Vial) 15 mg Q6HRS IVP Last administered on 12/28/21at 23:21; Start 12/28/21 at 18:00; Stop 12/29/21 at 04:50; Status DC Ceftriaxone Sodium (Rocephin) 1 gm Q24H IVP Last administered on 12/28/21at 18:00; Start 12/28/21 at 18:00 Metronidazole 100 ml @ 100 mls/hr Q8HRS IV Last administered on 12/29/21at 13:57; Start 12/28/21 at 22:00 Hydromorphone HCl (Dilaudid) 2 mg PRN Q4HRS PRN IVP PAIN; Start 12/28/21 at 17:30 Ketorolac Tromethamine (Toradol 30mg Vial) 30 mg 1X ONCE IVP Last administered on 12/28/21at 18:08; Start 12/28/21 at 18:30; Stop 12/28/21 at 18:31; Status DC Ketorolac Tromethamine (Toradol 30mg Vial) 15 mg Q6HRS IVP Last administered on 12/29/21at 11:35; Start 12/29/21 at 06:00; Stop 12/30/21 at 17:59 Allergies: Coded Allergies: naproxen (Unverified Allergy, Intermediate, 12/28/21) Physical Examination PHYSICAL EXAMINATION: GENERAL: Gen. appearance: No acute distress. Mood/affect: Pleasant. HEENT: Head: Normocephalic, atraumatic. Airway Impairment: No. CHEST: Shape and expansion: Normal. Expansion: Normal. SKIN: General: Warm. Color: Good. GENITOURINARY:deferred AB: soft and mildly tender NEUROLOGICAL: Mental status: Alert and oriented 3. Language: Normal. VITALS Vital Signs Date Time Temp Pulse Resp B/P (MAP) Pulse Ox O2 Delivery O2 Flow Rate FiO2 12/29/21 11:00 97.6 58 20 120/61 (80) 95 Room Air 97.6 12/29/21 08:00 10.0 Labs Laboratory Tests Test 12/28/21 11:25 12/28/21 14:35 12/29/21 06:25 White Blood Count 6.5 x10^3/uL (4.0-11.0) 8.8 x10^3/uL (4.0-11.0) Red Blood Count 5.07 x10^6/uL (4.30-5.70) 4.93 x10^6/uL (4.30-5.70) Hemoglobin 13.5 g/dL (13.0-17.5) 12.8 g/dL (13.0-17.5) Hematocrit 41.8 % (39.0-53.0) 40.9 % (39.0-53.0) Mean Corpuscular Volume 83 fL (79-100) 83 fL (79-100) Mean Corpuscular Hemoglobin 27 pg (25-35) 26 pg (25-35) Mean Corpuscular Hemoglobin Concent 32 g/dL (31-37) 31 g/dL (31-37) Red Cell Distribution Width 14.5 % (11.5-14.5) 14.4 % (11.5-14.5) Platelet Count 167 x10^3/uL (140-400) 159 x10^3/uL (140-400) Neutrophils (%) (Auto) 62 % (31-73) 88 % (31-73) Lymphocytes (%) (Auto) 26 % (24-48) 8 % (24-48) Monocytes (%) (Auto) 6 % (0-9) 4 % (0-9) Eosinophils (%) (Auto) 5 % (0-3) 0 % (0-3) Basophils (%) (Auto) 1 % (0-3) 0 % (0-3) Neutrophils # (Auto) 4.0 x10^3/uL (1.8-7.7) 7.7 x10^3/uL (1.8-7.7) Lymphocytes # (Auto) 1.7 x10^3/uL (1.0-4.8) 0.7 x10^3/uL (1.0-4.8) Monocytes # (Auto) 0.4 x10^3/uL (0.0-1.1) 0.3 x10^3/uL (0.0-1.1) Eosinophils # (Auto) 0.3 x10^3/uL (0.0-0.7) 0.0 x10^3/uL (0.0-0.7) Basophils # (Auto) 0.1 x10^3/uL (0.0-0.2) 0.0 x10^3/uL (0.0-0.2) Sodium Level 137 mmol/L (136-145) 141 mmol/L (136-145) Potassium Level 4.5 mmol/L (3.5-5.1) 4.0 mmol/L (3.5-5.1) Chloride Level 107 mmol/L (98-107) 108 mmol/L (98-107) Carbon Dioxide Level 25 mmol/L (21-32) 23 mmol/L (21-32) Anion Gap 5 (6-14) 10 (6-14) Blood Urea Nitrogen 14 mg/dL (8-26) 18 mg/dL (8-26) Creatinine 1.1 mg/dL (0.7-1.3) 1.1 mg/dL (0.7-1.3) Estimated GFR (Cockcroft-Gault) 66.6 66.6 BUN/Creatinine Ratio 13 (6-20) 16 (6-20) Glucose Level 95 mg/dL (70-99) 114 mg/dL (70-99) Calcium Level 8.4 mg/dL (8.5-10.1) 7.7 mg/dL (8.5-10.1) Total Bilirubin 0.6 mg/dL (0.2-1.0) 0.5 mg/dL (0.2-1.0) Aspartate Amino Transf (AST/SGOT) 20 U/L (15-37) 17 U/L (15-37) Alanine Aminotransferase (ALT/SGPT) 29 U/L (16-63) 29 U/L (16-63) Alkaline Phosphatase 72 U/L (46-116) 63 U/L (46-116) Total Protein 6.7 g/dL (6.4-8.2) 5.9 g/dL (6.4-8.2) Albumin 3.4 g/dL (3.4-5.0) 2.9 g/dL (3.4-5.0) Albumin/Globulin Ratio 1.0 (1.0-1.7) 1.0 (1.0-1.7) Influenza Type A Antigen Negative (NEGATIVE) Influenza Type B Antigen Negative (NEGATIVE) SARS-CoV-2 Antigen (Rapid) Negative (NEGATIVE) Laboratory Tests Test 12/28/21 14:35 12/29/21 06:25 Influenza Type A Antigen Negative (NEGATIVE) Influenza Type B Antigen Negative (NEGATIVE) SARS-CoV-2 Antigen (Rapid) Negative (NEGATIVE) White Blood Count 8.8 x10^3/uL (4.0-11.0) Red Blood Count 4.93 x10^6/uL (4.30-5.70) Hemoglobin 12.8 g/dL (13.0-17.5) Hematocrit 40.9 % (39.0-53.0) Mean Corpuscular Volume 83 fL (79-100) Mean Corpuscular Hemoglobin 26 pg (25-35) Mean Corpuscular Hemoglobin Concent 31 g/dL (31-37) Red Cell Distribution Width 14.4 % (11.5-14.5) Platelet Count 159 x10^3/uL (140-400) Neutrophils (%) (Auto) 88 % (31-73) Lymphocytes (%) (Auto) 8 % (24-48) Monocytes (%) (Auto) 4 % (0-9) Eosinophils (%) (Auto) 0 % (0-3) Basophils (%) (Auto) 0 % (0-3) Neutrophils # (Auto) 7.7 x10^3/uL (1.8-7.7) Lymphocytes # (Auto) 0.7 x10^3/uL (1.0-4.8) Monocytes # (Auto) 0.3 x10^3/uL (0.0-1.1) Eosinophils # (Auto) 0.0 x10^3/uL (0.0-0.7) Basophils # (Auto) 0.0 x10^3/uL (0.0-0.2) Sodium Level 141 mmol/L (136-145) Potassium Level 4.0 mmol/L (3.5-5.1) Chloride Level 108 mmol/L (98-107) Carbon Dioxide Level 23 mmol/L (21-32) Anion Gap 10 (6-14) Blood Urea Nitrogen 18 mg/dL (8-26) Creatinine 1.1 mg/dL (0.7-1.3) Estimated GFR (Cockcroft-Gault) 66.6 BUN/Creatinine Ratio 16 (6-20) Glucose Level 114 mg/dL (70-99) Calcium Level 7.7 mg/dL (8.5-10.1) Total Bilirubin 0.5 mg/dL (0.2-1.0) Aspartate Amino Transf (AST/SGOT) 17 U/L (15-37) Alanine Aminotransferase (ALT/SGPT) 29 U/L (16-63) Alkaline Phosphatase 63 U/L (46-116) Total Protein 5.9 g/dL (6.4-8.2) Albumin 2.9 g/dL (3.4-5.0) Albumin/Globulin Ratio 1.0 (1.0-1.7) Images CT A/P reviewed by me: I believe the kidney lesions are likley cysts. Assessment/Plan 66[address] revealing likely bilateral renal cysts -no urinary complaints -creatinine normal No urgent intervention needed -Outpatient Ct Urography in 6-8 weeks recommended -OK to DC home Call for appointment MADAI KIM DO Dec 29, 2021 14:25
[2021-12-29 15:00] VITALS: BP 102/58
[2021-12-29] MEDS: ENOXAPARIN 40 MG/0.4 ML SYRINGE. SQ SCH (15:54)
[2021-12-29] MEDS: cefTRIAXone IV Push 1 GM VIAL. IVP SCH (18:30)
[2021-12-29 19:08] VITALS: BP 124/69
[2021-12-29 23:00] VITALS: BP 111/57
[2021-12-30] MEDS: KETOROLAC 30 MG/ML VIAL. IVP SCH ×2 (06:08→12:15)
[2021-12-30 07:00] VITALS: BP 125/69
[2021-12-30 08:11] LABS: CLARITY,URINE CLEAR; COLOR,URINE YELLOW
[2021-12-30 08:14] LABS: BACTERIA,URINE FEW /HPF (0-FEW); WBC,URINE OCC /HPF (0-4)
--- NOTE | 2021-12-30 08:52 | PDOC ---
SURGICAL PROGRESS NOTE DATE: 12/30/21 TIME: 08:51 Subjective Patient doing quite well no bowel movement or flatus Vital Signs Vital Signs Date Time Temp Pulse Resp B/P (MAP) Pulse Ox O2 Delivery O2 Flow Rate FiO2 12/30/21 07:00 97.2 61 20 125/69 (87) 96 Room Air 97.2 12/29/21 08:00 10.0 I&O Intake and Output 12/30/21 07:00 Intake Total 0 ml Output Total 625 ml Balance -625 ml Intake Oral 0 ml Output Urine Total 625 ml PATIENT HAS A FRANCIS: No General: Alert, Oriented X3, Cooperative, mild distress Abdomen: Normal bowel sounds, Soft, Other (Mild incisional tenderness wounds clean dry and intact MICHAEL drain with essentially no output) Labs Laboratory Tests Test 12/28/21 11:25 12/28/21 14:35 12/29/21 06:25 12/30/21 05:10 White Blood Count 6.5 x10^3/uL (4.0-11.0) 8.8 x10^3/uL (4.0-11.0) Red Blood Count 5.07 x10^6/uL (4.30-5.70) 4.93 x10^6/uL (4.30-5.70) Hemoglobin 13.5 g/dL (13.0-17.5) 12.8 g/dL (13.0-17.5) Hematocrit 41.8 % (39.0-53.0) 40.9 % (39.0-53.0) Mean Corpuscular Volume 83 fL (79-100) 83 fL (79-100) Mean Corpuscular Hemoglobin 27 pg (25-35) 26 pg (25-35) Mean Corpuscular Hemoglobin Concent 32 g/dL (31-37) 31 g/dL (31-37) Red Cell Distribution Width 14.5 % (11.5-14.5) 14.4 % (11.5-14.5) Platelet Count 167 x10^3/uL (140-400) 159 x10^3/uL (140-400) Neutrophils (%) (Auto) 62 % (31-73) 88 % (31-73) Lymphocytes (%) (Auto) 26 % (24-48) 8 % (24-48) Monocytes (%) (Auto) 6 % (0-9) 4 % (0-9) Eosinophils (%) (Auto) 5 % (0-3) 0 % (0-3) Basophils (%) (Auto) 1 % (0-3) 0 % (0-3) Neutrophils # (Auto) 4.0 x10^3/uL (1.8-7.7) 7.7 x10^3/uL (1.8-7.7) Lymphocytes # (Auto) 1.7 x10^3/uL (1.0-4.8) 0.7 x10^3/uL (1.0-4.8) Monocytes # (Auto) 0.4 x10^3/uL (0.0-1.1) 0.3 x10^3/uL (0.0-1.1) Eosinophils # (Auto) 0.3 x10^3/uL (0.0-0.7) 0.0 x10^3/uL (0.0-0.7) Basophils # (Auto) 0.1 x10^3/uL (0.0-0.2) 0.0 x10^3/uL (0.0-0.2) Sodium Level 137 mmol/L (136-145) 141 mmol/L (136-145) Potassium Level 4.5 mmol/L (3.5-5.1) 4.0 mmol/L (3.5-5.1) Chloride Level 107 mmol/L (98-107) 108 mmol/L (98-107) Carbon Dioxide Level 25 mmol/L (21-32) 23 mmol/L (21-32) Anion Gap 5 (6-14) 10 (6-14) Blood Urea Nitrogen 14 mg/dL (8-26) 18 mg/dL (8-26) Creatinine 1.1 mg/dL (0.7-1.3) 1.1 mg/dL (0.7-1.3) Estimated GFR (Cockcroft-Gault) 66.6 66.6 BUN/Creatinine Ratio 13 (6-20) 16 (6-20) Glucose Level 95 mg/dL (70-99) 114 mg/dL (70-99) Calcium Level 8.4 mg/dL (8.5-10.1) 7.7 mg/dL (8.5-10.1) Total Bilirubin 0.6 mg/dL (0.2-1.0) 0.5 mg/dL (0.2-1.0) Aspartate Amino Transf (AST/SGOT) 20 U/L (15-37) 17 U/L (15-37) Alanine Aminotransferase (ALT/SGPT) 29 U/L (16-63) 29 U/L (16-63) Alkaline Phosphatase 72 U/L (46-116) 63 U/L (46-116) Total Protein 6.7 g/dL (6.4-8.2) 5.9 g/dL (6.4-8.2) Albumin 3.4 g/dL (3.4-5.0) 2.9 g/dL (3.4-5.0) Albumin/Globulin Ratio 1.0 (1.0-1.7) 1.0 (1.0-1.7) Coronavirus (COVID-19)(PCR) Not detected (NOT DETECTD) Influenza Type A Antigen Negative (NEGATIVE) Influenza Type B Antigen Negative (NEGATIVE) SARS-CoV-2 Antigen (Rapid) Negative (NEGATIVE) Urine Collection Type Unknown Urine Color Yellow Urine Clarity Clear Urine pH (<5.0-8.0) Urine Specific [place] (1.000-1.030) Urine Protein mg/dL (NEG-TRACE) Urine Glucose (UA) mg/dL (NEG) Urine Ketones (Stick) mg/dL (NEG) Urine Blood (NEG) Urine Nitrite (NEG) Urine Bilirubin (NEG) Urine Urobilinogen Dipstick mg/dL (0.2 mg/dL) Urine Leukocyte Esterase (NEG) Urine RBC 1-2 /HPF (0-2) Urine WBC Occ /HPF (0-4) Urine Squamous Epithelial Cells Few /LPF Urine Bacteria Few /HPF (0-FEW) Urine Mucus Mod /LPF Laboratory Tests Test 12/30/21 05:10 Urine Collection Type Unknown Urine Color Yellow Urine Clarity Clear Urine pH (<5.0-8.0) Urine Specific [place] (1.000-1.030) Urine Protein mg/dL (NEG-TRACE) Urine Glucose (UA) mg/dL (NEG) Urine Ketones (Stick) mg/dL (NEG) Urine Blood (NEG) Urine Nitrite (NEG) Urine Bilirubin (NEG) Urine Urobilinogen Dipstick mg/dL (0.2 mg/dL) Urine Leukocyte Esterase (NEG) Urine RBC 1-2 /HPF (0-2) Urine WBC Occ /HPF (0-4) Urine Squamous Epithelial Cells Few /LPF Urine Bacteria Few /HPF (0-FEW) Urine Mucus Mod /LPF Problem List Problems Medical Problems: (1) Perforation of sigmoid colon Status: Acute Assessment/Plan Status post laparoscopic repair of perforated colon from colonoscopy advance diet to clear liquids Justicifation of Admission Dx: Justifications for Admission: Justification of Admission Dx: Yes THOR SHINE MD Dec 30, 2021 08:52
--- NOTE | 2021-12-30 10:44 | PDOC ---
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 Basically, he was getting a routine colonoscopy done today at [facility] and apparently, there was a concern for a perforation. He was sent to the ER for evaluation. We have consulted Dr. Meyers. Dr. Meyers has taken the patient to surgery. 12/29/2021 No acute events overnight. Patient seen examined bedside. Patient having appropriate abdominal pain from surgical trocar incisions. Tolerable and well controlled with IV morphine. Passing flatus. Will defer diet to surgery. Patient's chart, labs, images were reviewed and discussed with RN 12/30/2021 No acute events overnight. Patient seen examined bedside. No flatus at this time. Surgery has advance his diet to clear liquid diet. Patient's chart, labs, images were reviewed and discussed with RN Vitals/I&O Vitals/I&O: Vital Signs Date Time Temp Pulse Resp B/P (MAP) Pulse Ox O2 Delivery O2 Flow Rate FiO2 12/30/21 08:15 Room Air 12/30/21 07:00 97.2 61 20 125/69 (87) 96 97.2 12/29/21 08:00 10.0 I & O 12/29/21 12/29/21 12/30/21 15:00 23:00 07:00 Intake Total 0 ml Output Total 200 ml 425 ml Balance -200 ml -425 ml 0 ml Physical Exam General: Alert, Oriented X3, Cooperative, mild distress Heart: Regular rate, No murmurs Abdomen: Normal bowel sounds, Soft, Other (Mild incisional tenderness wounds clean dry and intact MICHAEL drain with essentially no output) Extremities: No edema Skin: No significant lesion Labs Labs: Laboratory Tests Test 12/30/21 05:10 Urine Collection Type Unknown Urine Color Yellow Urine Clarity Clear Urine pH (<5.0-8.0) Urine Specific [place] (1.000-1.030) Urine Protein mg/dL (NEG-TRACE) Urine Glucose (UA) mg/dL (NEG) Urine Ketones (Stick) mg/dL (NEG) Urine Blood (NEG) Urine Nitrite (NEG) Urine Bilirubin (NEG) Urine Urobilinogen Dipstick mg/dL (0.2 mg/dL) Urine Leukocyte Esterase (NEG) Urine RBC 1-2 /HPF (0-2) Urine WBC Occ /HPF (0-4) Urine Squamous Epithelial Cells Few /LPF Urine Bacteria Few /HPF (0-FEW) Urine Mucus Mod /LPF Assessment and Plan Assessmemt and Plan Problems Medical Problems: (1) Perforation of sigmoid colon Status: Acute Comment Review of Relevant I have reviewed the following items adi (where applicable) has been applied. Medications: Current Medications Medications (Trade) Dose Ordered Sig/Tete Route PRN Reason Start Time Stop Time Status Last Admin Dose Admin Enoxaparin Sodium (Lovenox 40mg Syringe) 40 mg Q24H SQ 12/29/21 16:00 12/29/21 15:54 Justifications for Admission Other Justification YESY NICKERSON MD Dec 30, 2021 10:44
[2021-12-30 11:05] VITALS: BP 137/76
[2021-12-30 15:00] VITALS: BP 127/71
[2021-12-30] MEDS: ENOXAPARIN 40 MG/0.4 ML SYRINGE. SQ SCH (16:10)
[2021-12-30] MEDS: cefTRIAXone IV Push 1 GM VIAL. IVP SCH (17:25)
[2021-12-30 19:00] VITALS: BP 120/68
[2021-12-30] MEDS ORDERED: ONDANSETRON PF 4 MG/2 ML VIAL. IVP PRN (21:45)
[2021-12-30 23:00] VITALS: BP 139/69
[2021-12-31 02:32] VITALS: BP 117/74
[2021-12-31 07:00] VITALS: BP 143/80
--- NOTE | 2021-12-31 09:17 | PDOC ---
SURGICAL PROGRESS NOTE DATE: 12/31/21 TIME: 09:16 Subjective Patient doing well no complaints passing a lot of flatus no bowel movement Vital Signs Vital Signs Date Time Temp Pulse Resp B/P (MAP) Pulse Ox O2 Delivery O2 Flow Rate FiO2 12/31/21 08:00 Room Air 12/31/21 07:00 98.1 57 20 143/80 (101) 96 98.1 12/30/21 21:27 10.0 I&O Intake and Output 12/31/21 07:00 Intake Total 240 ml Output Total 1300 ml Balance -1060 ml Intake Oral 240 ml Output Urine Total 1300 ml PATIENT HAS A FRANCIS: No General: Alert, Oriented X3, Cooperative, mild distress Abdomen: Normal bowel sounds, Soft, Other (Mild incisional tenderness wounds clean dry and intact MICHAEL drain intact with serosanguineous output minimal) Labs Laboratory Tests Test 12/30/21 05:10 Urine Collection Type Unknown Urine Color Yellow Urine Clarity Clear Urine pH (<5.0-8.0) Urine Specific [place] (1.000-1.030) Urine Protein mg/dL (NEG-TRACE) Urine Glucose (UA) mg/dL (NEG) Urine Ketones (Stick) mg/dL (NEG) Urine Blood (NEG) Urine Nitrite (NEG) Urine Bilirubin (NEG) Urine Urobilinogen Dipstick mg/dL (0.2 mg/dL) Urine Leukocyte Esterase (NEG) Urine RBC 1-2 /HPF (0-2) Urine WBC Occ /HPF (0-4) Urine Squamous Epithelial Cells Few /LPF Urine Bacteria Few /HPF (0-FEW) Urine Mucus Mod /LPF Problem List Problems Medical Problems: (1) Perforation of sigmoid colon Status: Acute Assessment/Plan Status post laparoscopic repair of perforated colon from colonoscopy patient doing quite well passing flatus will advance diet to full liquid Justicifation of Admission Dx: Justifications for Admission: Justification of Admission Dx: Yes THOR SHINE MD Dec 31, 2021 09:17
[2021-12-31] MEDS ORDERED: oxyCODONE/APAP 5/325 1 TAB TABLET PO PRN (09:30)
--- NOTE | 2021-12-31 09:31 | PDOC ---
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 Basically, he was getting a routine colonoscopy done today at [facility] and apparently, there was a concern for a perforation. He was sent to the ER for evaluation. We have consulted Dr. Meyers. Dr. Meyers has taken the patient to surgery. 12/29/2021 No acute events overnight. Patient seen examined bedside. Patient having appropriate abdominal pain from surgical trocar incisions. Tolerable and well controlled with IV morphine. Passing flatus. Will defer diet to surgery. Patient's chart, labs, images were reviewed and discussed with RN 12/30/2021 No acute events overnight. Patient seen examined bedside. No flatus at this time. Surgery has advance his diet to clear liquid diet. Patient's chart, labs, images were reviewed and discussed with RN 12/31/2021 No acute events overnight. Patient seen and examined bedside. Passing flatus. Tolerating clear liquid diet. Unfortunately, patient is unable to tolerate Dilaudid. Placed on Percocet as needed. Anticipate discharge in the next 24 to 48 hours patient's chart, labs, images were reviewed and discussed with RN Vitals/I&O Vitals/I&O: Vital Signs Date Time Temp Pulse Resp B/P (MAP) Pulse Ox O2 Delivery O2 Flow Rate FiO2 12/31/21 08:00 Room Air 12/31/21 07:00 98.1 57 20 143/80 (101) 96 98.1 12/30/21 21:27 10.0 I & O 12/30/21 12/30/21 12/31/21 15:00 23:00 07:00 Intake Total 240 ml Output Total 520 ml 180 ml 600 ml Balance -520 ml -180 ml -360 ml Physical Exam General: Alert, Oriented X3, Cooperative, mild distress Heart: Regular rate, No murmurs Abdomen: Normal bowel sounds, Soft, Other (Mild incisional tenderness wounds clean dry and intact MICHAEL drain intact with serosanguineous output minimal) Extremities: No edema Skin: No significant lesion Assessment and Plan Assessmemt and Plan Problems Medical Problems: (1) Perforation of sigmoid colon Status: Acute Comment Review of Relevant I have reviewed the following items adi (where applicable) has been applied. Medications: Current Medications Medications (Trade) Dose Ordered Sig/Tete Route PRN Reason Start Time Stop Time Status Last Admin Dose Admin Ondansetron HCl (Zofran) 4 mg PRN Q6HRS PRN IVP NAUSEA/VOMITING 12/30/21 21:45 12/30/21 21:54 Justifications for Admission Other Justification YESY NICKERSON MD Dec 31, 2021 09:31
[2021-12-31 11:00] VITALS: BP 124/76
[2021-12-31 15:00] VITALS: BP 145/68
[2021-12-31] MEDS: ENOXAPARIN 40 MG/0.4 ML SYRINGE. SQ SCH (16:11)
[2021-12-31] MEDS: oxyCODONE/APAP 5/325 1 TAB TABLET PO PRN (17:30)
[2021-12-31] MEDS: cefTRIAXone IV Push 1 GM VIAL. IVP SCH (17:31)
[2021-12-31 19:00] VITALS: BP 126/74
[2021-12-31 23:00] VITALS: BP 118/63
[2022-01-01 03:00] VITALS: BP 135/77
[2022-01-01 07:00] VITALS: BP 149/78
[2022-01-01] MEDS: oxyCODONE/APAP 5/325 1 TAB TABLET PO PRN (07:51)
[2022-01-01] MEDS ORDERED: AMOXICILLIN/K CLAV 875/125MG TABLET. PO SCH (09:00)
[2022-01-01 10:31] VITALS: BP 157/78
--- NOTE | 2022-01-01 10:32 | PDOC ---
JUDY HODGE APRN 01/01/22 1032: SURGICAL PROGRESS NOTE DATE: 01/01/22 TIME: 10:31 Subjective had stool minimal pain Vital Signs Vital Signs Date Time Temp Pulse Resp B/P (MAP) Pulse Ox O2 Delivery O2 Flow Rate FiO2 01/01/22 09:20 96 Room Air 10.0 01/01/22 07:00 97.5 60 18 149/78 (101) 97.5 I&O Intake and Output 01/01/22 07:00 Intake Total 340 ml Output Total 1000 ml Balance -660 ml Intake Oral 240 ml IV Total 100 ml Output Urine Total 1000 ml General: Alert, Oriented X3, Cooperative Abdomen: Soft, Other (drain serosang) Problem List Problems Medical Problems: (1) Perforation of sigmoid colon Status: Acute Assessment/Plan soft diet can dc home after lunch if tolerates dc drain prior to discharge Justicifation of Admission Dx: Justifications for Admission: Justification of Admission Dx: Yes THOR SHINE MD 01/01/22 1048: SURGICAL PROGRESS NOTE Assessment/Plan Agree with Santiago's assessment and plan JUDY HODGE APRN Jan 01, 2022 10:32 THOR SHINE MD Jan 01, 2022 10:48
--- NOTE | 2022-01-01 10:35 | NUR ---
MICHAEL drain removed per order from general surgery. Patient tolerated intervention well. Dressing applied. Will continue to monitor.
--- NOTE | 2022-01-01 11:07 | NUR ---
SW following. Discussed with RN, pt from home, room air, GI soft, COVID-19 negative. Drain removed. RN advised no SW needs at this time, anticipates discharge in the next day or so. SW will continue to follow.
[2022-01-01] MEDS ORDERED: AMOX1TAB11 PO (11:23)
[2022-01-01] MEDS ORDERED: OXYC1TAB15 PO (11:23)
--- NOTE | 2022-01-01 11:25 | DISCH ---
DISCHARGE INSTRUCTIONS Condition on Discharge Condition on Discharge: Stable Activity After Discharge Activity Instructions for Disc: Activity as tolerated Lifting Instructions after Dis: Do not lift >10 pounds Exercise Instruction after Dis: Walk 30 min, 5 x per week Driving Instructions after Dis: Do not drive today Weight Bearing Status after Di: As tolerated Diet after Discharge Diet after Discharge: Cardiac Follow-Up Follow up with: PCP within 2 weeks of discharge Follow Up With: General surgery within 2 weeks for postoperative wound check YESY NICKERSON MD Jan 01, 2022 11:25
--- NOTE | 2022-01-01 11:55 | PDOC ---
Infectious Disease Note Subjective Subjective Patient is feeling good no abdominal pain no nausea vomiting diarrhea able to tolerate food ROS ROS Unremarkable Vital Sign Vital Signs Vital Signs Date Time Temp Pulse Resp B/P (MAP) Pulse Ox O2 Delivery O2 Flow Rate FiO2 01/01/22 10:31 98.2 51 18 157/78 (104) 96 Room Air 98.2 01/01/22 09:20 10.0 Physical Exam PHYSICAL EXAM GENERAL: Alert, oriented gentleman, not in distress. VITAL SIGNS: Stable, afebrile. HEENT: NAD. NECK: Supple, no JVP, no lymphadenopathy. LUNGS: Clear. HEART: S1, S2, regular. ABDOMEN: Soft, nontender, not distended. EXTREMITIES: No edema or cyanosis. SKIN: Unremarkable. NEUROLOGIC: The patient is alert, awake, and appropriate. No focal neurologic deficit. Objective Assessment . IMPRESSION: 1. Colon perforation post-colonoscopy, status post repair. 2. History of marijuana use. Plan Plan of Care Okay to DC on p.o. Augmentin for 5 days ANTON BARTHOLOMEW MD Jan 01, 2022 11:55
--- NOTE | 2022-01-01 12:28 | NUR ---
Discharge Note: PANDA HUANG WALKER Discharge instructions and discharge home medications reviewed with Patient and a copy given. All questions have been answered and understanding verbalized. The following instructions and handouts were given: discharge instructions, new prescriptions, education and follow up recommendations. Discontinued lines and drains: Peripheral IV discontinued intact. Patient discharged to Home or Self Care with Spouse via Wheelchair off unit by GRADUATE NURSE.
== END 2022-01-01 12:28 | disposition home or self-care (01) | DRG 330 ==
LOC: ER 12:34 → 5 NORTH 14:10
PROVIDERS: ADMIT Internal Medicine; ATTEND Internal Medicine
PROC: 0DQN4ZZ Repair Sigmoid Colon, Percutaneous Endoscopic Approach (ICD-10-PCS; principal; 2021-12-28 15:00)
DX: K63.1 Perforation of intestine (nontraumatic) (principal); N13.30 Unspecified hydronephrosis; L50.9 Urticaria, unspecified; N28.1 Cyst of kidney, acquired; Z83.3 Family history of diabetes mellitus; Z87.891 Personal history of nicotine dependence; Z88.6 Allergy status to analgesic agent; Z20.822 Contact with and (suspected) exposure to COVID-19
CPT/HCPCS: 36415; 74177; 80053; 81001; 85025; 87428; 96361; 96365; 96372; 96375; 96376; A4314; A4364; A4452; A4930; A6402; J0330; J0696; J1100; J1170; J1650; J1885; J2250; J2270; J2370; J2405; J2704; J2710; J3010; J3490; J7030; J7120; Q9967; U0003; 99285-25; G0378